=== PATIENT | male | born 1995 | race Native Hawaiian/Other Pacific Islander ===

== ENCOUNTER 2019-04-30 23:37 | Emergency (ER) | payer SELFPAY ==
[~2019-04-30] VITALS: Ht 180.3 cm; Wt 75.3 kg
[2019-05-01 00:58] LABS: Basophils # (auto) 0 uL; Basophils % (auto) 0.3 % (0.0-2.0); Eosinophils # (auto) 0 uL; Eosinophils % (auto) 0.2 % (0.0-7.0); Hematocrit 42.3 % (41.0-53.0); Hemoglobin 14.7 g/dL (13.5-17.5); Lymphocytes # (auto) 1.6 uL; Lymphocytes % (auto) 15.3 % (10.0-50.0); Mean Corpuscular Hemoglobin 30.2 pg (28.0-32.0); Mean Corpuscular Hgb Conc. 34.8 g/dL (32.0-36.0); Mean Corpuscular Volume 86.7 fL (80.0-100.0); Monocytes # (auto) 0.8 uL; Monocytes % (auto) 7.6 % (0.0-12.0); Neutrophils # (auto) 8.1 uL; Neutrophils % (auto) 76.6 % (37.0-80.0); Platelet Count (auto) 189 10^3/uL (140-450); Red Blood Cells 4.87 10^6/uL (4.5-5.90); Red Cell Distribution Width 13.5 % (11.8-14.3); White Blood Cell 10.6 10^3/uL (4.4-10.8)
[2019-05-01 01:19] LABS: Partial Thromboplastin Time 37.1 sec (23.64-32.05)
[2019-05-01 01:29] LABS: Albumin 3.5 g/dL (3.4-5.0); Anion Gap 6 (5-15); Blood Urea Nitrogen 19 mg/dL (7-18); Calcium 8.2 mg/dL (8.5-10.1); Carbon Dioxide 25 mmol/L (21-32); Chloride 106 mmol/L (98-107); Glucose 91 mg/dL (74-106); Magnesium 2.1 mg/dL (1.6-2.6); Potassium 3.9 mmol/L (3.5-5.1); Sodium 137 mmol/L (136-145)
[2019-05-01 01:31] LABS: BUN/Creatinine Ratio 13.9; GFR African American 81 mL/min; GFR Non-African American 67 mL/min
[2019-05-01 01:37] LABS: Alanine Aminotransferase 52 U/L (16-61); Alkaline Phosphatase 71 U/L (45-117); Aspartate Aminotransferase 72 U/L (15-37); Bilirubin, Total 1.2 mg/dL (0.2-1.0); Total Protein 7.5 g/dL (6.4-8.2)
[2019-05-01] MEDS ORDERED: ASPirin 81 mg TAB PO ONE (07:30)
[2019-05-01] MEDS ORDERED: cefTRIAXone W LIDOCAINE 1 GM IM IM ONE (07:30)
[2019-05-01 07:41] VITALS: BP 131/89
[2019-05-01] MEDS ORDERED: cefTRIAXone SOD 1,000 MG VL ONE (07:44)
[2019-05-01] MEDS ORDERED: LIDOCAINE 1% HCL (LOCAL ANESTH.) INJ 20ML MDV ONE (07:45)
== END 2019-05-01 07:55 | disposition home or self-care (01) ==
LOC: ER 23:40
DX: R07.89 Other chest pain (principal); J40 Bronchitis, not specified as acute or chronic; F17.210 Nicotine dependence, cigarettes, uncomplicated; F12.10 Cannabis abuse, uncomplicated
CPT/HCPCS: 36415; 71046; 80053; 83735; 83880; 84484; 85025; 85610; 85730; 93005; 96372; 99285; J0696; J2001

== ENCOUNTER 2022-04-30 10:35 | Emergency (ER) | payer OTHER ==
[~2022-04-30] VITALS: Ht 180.3 cm; Wt 76.0 kg
[2022-04-30 11:46] VITALS: BP 124/75
[2022-04-30] MEDS ORDERED: IBUP800T27 PO (12:21)
== END 2022-04-30 12:28 | disposition home or self-care (01) ==
LOC: ER 10:35
DX: S39.012A Strain of muscle, fascia and tendon of lower back, initial encounter (principal); F17.210 Nicotine dependence, cigarettes, uncomplicated; F12.90 Cannabis use, unspecified, uncomplicated; V49.9XXA Car occupant (driver) (passenger) injured in unspecified traffic accident, initial encounter; Y93.89 Activity, other specified; Y92.89 Other specified places as the place of occurrence of the external cause; Y99.8 Other external cause status
CPT/HCPCS: 72100

== ENCOUNTER 2024-09-03 12:48 | Emergency (ER) | payer SELFPAY ==
[~2024-09-03] VITALS: Ht 190.5 cm; Wt 86.0 kg
[~2024-09-03 12:48] MED LIST: IBUP-1456 PO
[2024-09-03 12:50] VITALS: PULSE 51; RESP 14; O2SAT 98
[2024-09-03 12:55] VITALS: BP 91/49; PULSE 47; RESP 14; TEMP 97.2; O2SAT 97
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
== END 2024-09-03 13:06 | disposition short-term general hospital (02) ==
LOC: EDBD 12:48 → ER 12:48
DX: S21.101A Unspecified open wound of right front wall of thorax without penetration into thoracic cavity, initial encounter (principal); F17.210 Nicotine dependence, cigarettes, uncomplicated; F12.90 Cannabis use, unspecified, uncomplicated; Z79.1 Long term (current) use of non-steroidal anti-inflammatories (NSAID); X99.8XXA Assault by other sharp object, initial encounter; Y93.89 Activity, other specified; Y92.89 Other specified places as the place of occurrence of the external cause; Y99.8 Other external cause status
CPT/HCPCS: 71045; 86920